=== PATIENT | female | born 1960 | race Caucasian/White ===

== ENCOUNTER → 2016-08-15 | Outpatient (CLI) | payer BC ==
[~2016-08-15] MED LIST: CALTRATE 600 +1 EAC1 PO; CLIMARA 0.050.05 MG EXT; COQ1050 MG PO; CYMBALTA30 MG PO; FROVA2.5 MG PO; GABAPENTIN300 M2 PO; HORMONE PATCH; MIGRELIEF CAPL1 EACH PO; PREVACID PO; VITAMIN D PO; VITAMIN E PO; ZYRTEC10 M1 PO
== END | disposition home or self-care (01) ==
LOC: CSSDAY 11:00
DX: G43.909 Migraine, unspecified, not intractable, without status migrainosus (principal); Z79.899 Other long term (current) drug therapy
CPT/HCPCS: 96365; 96367; 96374; J1100; J3475

== ENCOUNTER → 2016-08-16 | Outpatient (CLI) | payer BC | END | disposition home or self-care (01) | LOC: CSSDAY 09:21 | DX: G43.909 Migraine, unspecified, not intractable, without status migrainosus (principal); Z79.899 Other long term (current) drug therapy | CPT/HCPCS: 96365; 96367; 96374; J1100; J3475 ==

== ENCOUNTER → 2016-08-17 | Outpatient (CLI) | payer BC | END | disposition home or self-care (01) | LOC: CSSDAY 08:40 | DX: G43.909 Migraine, unspecified, not intractable, without status migrainosus (principal); Z79.899 Other long term (current) drug therapy | CPT/HCPCS: 96365; 96367; 96374; J1100; J3475 ==

== ENCOUNTER → 2016-08-18 | Outpatient (CLI) | payer BC | END | disposition home or self-care (01) | LOC: CSSDAY 08:42 | DX: G43.909 Migraine, unspecified, not intractable, without status migrainosus (principal); Z79.899 Other long term (current) drug therapy | CPT/HCPCS: 96365; 96367; 96374; J1100; J3475 ==

== ENCOUNTER → 2016-08-21 | Outpatient (CLI) | payer BC | END | disposition home or self-care (01) | LOC: CSSDAY 08:04 | DX: G43.909 Migraine, unspecified, not intractable, without status migrainosus (principal); Z79.899 Other long term (current) drug therapy | CPT/HCPCS: 96365; 96367; 96374; J1100; J3475 ==